=== PATIENT | male | born 1995 | race American Indian/Alaskan Native ===

== ENCOUNTER 2017-03-26 15:02 | Emergency (ER) | payer OTHER ==
[~2017-03-26] VITALS: Ht 180.3 cm; Wt 65.8 kg
[~2017-03-26 15:02] MED LIST: NORCO 5-325 TA1 EACH PO
== END 2017-03-26 19:48 | disposition left against medical advice (07) ==
LOC: ED 15:02
DX: F39 Unspecified mood [affective] disorder (principal); Z53.21 Procedure and treatment not carried out due to patient leaving prior to being seen by health care provider
CPT/HCPCS: 80053; 80176; 81001; 85025; 99283; G0480

== ENCOUNTER 2017-03-27 07:08 | Emergency (ER) | payer OTHER | END 2017-03-27 07:33 | disposition home or self-care (01) | LOC: ED 07:08 | DX: Z53.21 Procedure and treatment not carried out due to patient leaving prior to being seen by health care provider (principal) ==

== ENCOUNTER 2017-08-15 17:27 | Emergency (ER) | payer OTHER ==
[~2017-08-15] VITALS: Ht 180.3 cm; Wt 81.8 kg
[2017-08-15] MEDS ORDERED: INVEGA SUS234 MG/1.5 IM (17:42)
[2017-08-15] MEDS ORDERED: DEPAKOTE250 MG PO (17:43)
== END 2017-08-15 19:02 | disposition home or self-care (01) ==
LOC: ED 17:27
DX: F20.9 Schizophrenia, unspecified (principal); F17.200 Nicotine dependence, unspecified, uncomplicated; Z88.0 Allergy status to penicillin; Z79.899 Other long term (current) drug therapy
CPT/HCPCS: 80053; 80176; 81001; 84443; 85025; 99283; G0480

== ENCOUNTER 2018-07-17 13:14 | Emergency (ER) | payer OTHER ==
[~2018-07-17] VITALS: Ht 180.3 cm; Wt 81.8 kg
[~2018-07-17 13:14] MED LIST changes: +DEPAKOTE250 MG PO; +INVEGA SUS234 MG/1.5 IM
--- OUTSIDE RECORDS SUMMARY | 2018-07-17 13:20 | XMS ---
PreManage Notification: JORDY CHENG Security Rn Iv Therapy Events 1 event(s) in the past 18 months Most recent security events: Elopement at [facility] 03/26/2017 15:03 - Patient eloped before treatment completed. Details: AMA CRITERIA MET - Group Notification CARE PROVIDERS [facility] 05/16/2016-Current PHONE: [phone] [facility] Current PHONE: [phone] Toney has no Care Guidelines for this patient. Care History Behavioral 11/22/2017 [facility] Client has requested to discharge from mental health services against medical advice.He has agreed to stay with Medication Management only. E.D. VISIT COUNT (12 MO.) 2 [facility] [place] LeanneClaudia TOTAL 2 NOTE: Visits indicate total known visits. ED/UCC VISIT TRACKING (12 MO.) 07/17/2018 13:15 [facility] [place] TYPE: Emergency COMPLAINT: - JAW PAIN,NON INJURY 08/15/2017 17:28 [facility] Richardson [place] TYPE: Emergency COMPLAINT: - MEDICAL CLEARANCE DIAGNOSES: - Other intermediate school teacher (current) drug therapy - Nicotine dependence, unspecified, uncomplicated - Schizophrenia, unspecified - Allergy status to penicillin INPATIENT VISIT TRACKING (12 MO.) No inpatient visits to display in this time frame [email or web address]
== END 2018-07-17 15:24 | disposition home or self-care (01) ==
LOC: ED 13:14
DX: R51 Headache (principal); F15.10 Other stimulant abuse, uncomplicated; F17.200 Nicotine dependence, unspecified, uncomplicated; Z88.0 Allergy status to penicillin; Z79.899 Other long term (current) drug therapy
CPT/HCPCS: 96372; 99283-25; J1200

== ENCOUNTER 2019-12-20 11:22 | Emergency (ER) | payer OTHER ==
[~2019-12-20] VITALS: Ht 175.3 cm; Wt 84.5 kg
[~2019-12-20 11:22] MED LIST changes: +NICOTINE1 EAC1 TD; +POTASSIUM CHLO20 ME1 PO
--- OUTSIDE RECORDS SUMMARY | 2019-12-20 11:24 | XMS ---
PreManage Notification: JORDY CHENG Security Marketing Services Manager Events No recent Security Events currently on file CRITERIA MET - Group Notification - [facility] - Has Care Guidelines CARE PROVIDERS LEANDER SLOAN Physician Grease Renderer: Surgical 07/18/2018-Current PHONE: Unknown Guidelines Source: [facility] [place] Guidelines Date: 01/29/2019 Care Coordination: Mental health services are being provided by [facility].\T\nbsp; Please contact [facility] with mental health concerns.\T\nbsp; [place] [facility]: [phone]\T\nbsp; [place]: [phone]. Care History Medical/Surgical 07/18/2018 [facility] \T\middot;\T\nbsp; PATIENT IS A [employer] MEMBER. \T\middot;\T\nbsp; PLEASE REFER PATIENT TO [facility] FOR NON EMERGENT MEDICAL NEEDS. \T\middot;\ T\nbsp; [facility] CAN SEE PATIENTS SAME DAY FOR APTS IF PATIENT CALLS FIRST THING IN THE MORNING. Behavioral 11/22/2017 [place] Client has requested to discharge from mental health services against medical advice.He has agreed to stay with Medication Management only. E.D. VISIT COUNT (12 MO.) 2 ELVIRA Waters TOTAL 2 NOTE: Visits indicate total known visits. ED/UCC VISIT TRACKING (12 MO.) 12/20/2019 11:22 [facility] Richardson [place] TYPE: Emergency COMPLAINT: - ABD PAIN, VOMITING 01/28/2019 22:36 ELVIR[facility] Richardson OR TYPE: Emergency COMPLAINT: - VOMITING INPATIENT VISIT TRACKING (12 MO.) 01/29/2019 03:20 ELVIR[facility] Richardson [place] TYPE: Medical Surgical COMPLAINT: - RENAL FAILURE DIAGNOSES: - Hypokalemia - Hypokalemia - Viral intestinal infection, unspecified - Acute kidney failure, unspecified - Allergy status to penicillin - Other joint terminal attack controller (current) drug therapy - Viral intestinal infection, unspecified - Allergy status to penicillin - Acute kidney failure, unspecified - Schizophrenia, unspecified - Nicotine dependence, unspecified, uncomplicated - Vomiting, unspecified - Heatstroke and sunstroke, initial encounter - Other psychoactive substance abuse, uncomplicated - Other psychoactive substance abuse, uncomplicated - Heatstroke and sunstroke, initial encounter - Alkalosis - Other joint terminal attack controller (current) drug therapy - Alkalosis - Schizophrenia, unspecified - Nicotine dependence, unspecified, uncomplicated [id number]
[2019-12-20] MEDS ORDERED: K-TAB ER20 MEQ PO ×2 (14:18→14:19)
[2019-12-20] MEDS ORDERED: ZOFRAN4 MG PO (14:19)
== END 2019-12-20 14:45 | disposition home or self-care (01) ==
LOC: ED 11:22
DX: E87.6 Hypokalemia (principal); F12.90 Cannabis use, unspecified, uncomplicated; R11.10 Vomiting, unspecified; F17.200 Nicotine dependence, unspecified, uncomplicated; Z88.0 Allergy status to penicillin
CPT/HCPCS: 80053; 81001; 83690; 83735; 85025; 96361; 96374; 99284-25; J2405; J7030

== ENCOUNTER 2019-12-27 14:41 | Emergency (ER) | payer OTHER ==
[~2019-12-27] VITALS: Ht 175.3 cm; Wt 84.5 kg
[~2019-12-27 14:41] MED LIST changes: +K-TAB ER20 MEQ PO; +ZOFRAN4 MG PO
--- OUTSIDE RECORDS SUMMARY | 2019-12-27 14:44 | XMS ---
PreManage Notification: JORDY CHENG Security Production Estimator Events No recent Security Events currently on file CRITERIA MET - Group Notification - [facility] - Has Care Guidelines - [facility] - 2 Visits in 30 Days CARE PROVIDERS LEANDER SLOAN Physician Fisher Hoop Net: Surgical 07/18/2018-Current PHONE: Unknown Name Unknown Clinic/Center 12/22/2019-Current PHONE: [phone] Guidelines [facility] Guidelines Date: 01/29/2019 Care Coordination: Mental health services are being provided by [facility].\T\nbsp; Please contact [facility] with mental health concerns.\T\nbsp; [place] Prabhakar: [phone]\T\nbsp; Nancy: [phone]. Care History Medical/Surgical 07/18/2018 [facility] - PATIENT IS A [facility] ELIGIBLE, \T\middot;\T\nbsp; PLEASE REFER PATIENT TO [facility] FOR NON EMERGENT MEDICAL NEEDS. \T\middot;\T\nbsp; [facility] CAN SEE PATIENTS SAME DAY FOR APTS IF PATIENT CALLS FIRST THING IN THE MORNING. Behavioral 11/22/2017 Lori Walter has requested to discharge from mental health services against medical advice.He has agreed to stay with Medication Management only. E.D. VISIT COUNT (12 MO.) 3 ELVIRA Waters TOTAL 3 NOTE: Visits indicate total known visits. ED/UCC VISIT TRACKING (12 MO.) 12/27/2019 14:42 EL[facility]IR[facility] Richardson OR TYPE: Emergency COMPLAINT: - MEDICAL CLEARANCE/ DRUG USE 12/20/2019 11:22 [facility] Richardson OR TYPE: Emergency COMPLAINT: - ABD PAIN, VOMITING DIAGNOSES: - Cannabis use, unspecified, uncomplicated - Hypokalemia - Unspecified abdominal pain - Nicotine dependence, unspecified, uncomplicated - Allergy status to penicillin - Vomiting, unspecified 01/28/2019 22:36 ELVIR[facility] Richardson OR TYPE: Emergency COMPLAINT: - VOMITING INPATIENT VISIT TRACKING (12 MO.) 01/29/2019 03:20 ELVIRA Richardson OR TYPE: Medical Surgical COMPLAINT: - RENAL FAILURE DIAGNOSES: - Hypokalemia - Hypokalemia - Viral intestinal infection, unspecified - Acute kidney failure, unspecified - Allergy status to penicillin - Other termite treater (current) drug therapy - Viral intestinal infection, unspecified - Allergy status to penicillin - Acute kidney failure, unspecified - Schizophrenia, unspecified - Nicotine dependence, unspecified, uncomplicated - Vomiting, unspecified - Heatstroke and sunstroke, initial encounter - Other psychoactive substance abuse, uncomplicated - Other psychoactive substance abuse, uncomplicated - Heatstroke and sunstroke, initial encounter - Alkalosis - Other correction (current) drug therapy - Alkalosis - Schizophrenia, unspecified - Nicotine dependence, unspecified, uncomplicated [email or web address]
== END 2019-12-27 16:27 | disposition home or self-care (01) ==
LOC: ED 14:41
DX: F15.90 Other stimulant use, unspecified, uncomplicated (principal); F12.90 Cannabis use, unspecified, uncomplicated; F17.200 Nicotine dependence, unspecified, uncomplicated; Z88.0 Allergy status to penicillin
CPT/HCPCS: 81001; 99283

== ENCOUNTER 2020-06-21 13:10 | Emergency (ER) | payer OTHER ==
[~2020-06-21] VITALS: Ht 175.3 cm; Wt 84.1 kg
--- OUTSIDE RECORDS SUMMARY | 2020-06-21 13:12 | XMS ---
PreManage Notification: JORDY CHENG Security Director Of Restaurants Events No recent Security Events currently on file CRITERIA MET - Group Notification - [facility] - Has Care Guidelines CARE PROVIDERS LEANDER SLOAN Physician City Detective: Surgical 07/18/2018-Current PHONE: Unknown Name [facility] Clinic/Center 12/22/2019-Current PHONE: [phone] Guidelines Source: [facility] Guidelines Date: 01/29/2019 Care Coordination: Mental health services are being provided by [facility].\T\nbsp; Please contact [facility] with mental health concerns.\T\nbsp; [place] [facility]: \T\nbsp; [place]: [phone]. Care History Medical/Surgical 07/18/2018 [facility] - [facility], \T\middot;\T\nbsp; PLEASE REFER PATIENT TO [facility] FOR NON EMERGENT MEDICAL NEEDS. \T\middot;\T\nbsp; [facility] CAN SEE PATIENTS SAME DAY FOR APTS IF PATIENT CALLS FIRST THING IN THE MORNING. Behavioral 11/22/2017 Lori Hodges Client has requested to discharge from mental health services against medical advice.He has agreed to stay with Medication Management only. Fernando VISIT COUNT (12 MO.) 3 ELVIRA Waters TOTAL 3 NOTE: Visits indicate total known visits. ED/UCC VISIT TRACKING (12 MO.) 06/21/2020 13:11 ELVIRA Richardson OR TYPE: Emergency COMPLAINT: - POSSIBLE MENTAL CRISIS 12/27/2019 14:42 ELVIRA Richardson OR TYPE: Emergency COMPLAINT: - MEDICAL CLEARANCE/ DRUG USE DIAGNOSES: - Other stimulant use, unspecified, uncomplicated - Cannabis use, unspecified, uncomplicated - Allergy status to penicillin - Other stimulant use, unspecified, uncomplicated - Nicotine dependence, unspecified, uncomplicated 12/20/2019 11:22 [facility] Richardson OR TYPE: Emergency COMPLAINT: - ABD PAIN, VOMITING DIAGNOSES: - Cannabis use, unspecified, uncomplicated - Hypokalemia - Unspecified abdominal pain - Nicotine dependence, unspecified, uncomplicated - Allergy status to penicillin - Vomiting, unspecified INPATIENT VISIT TRACKING (12 MO.) No inpatient visits to display in this time frame [id number]
== END 2020-06-21 15:20 | disposition home or self-care (01) ==
LOC: ED 13:10
DX: F15.90 Other stimulant use, unspecified, uncomplicated (principal); F17.200 Nicotine dependence, unspecified, uncomplicated; Z88.0 Allergy status to penicillin; Z79.899 Other long term (current) drug therapy
CPT/HCPCS: 80053; 84443; 85025; 99282; G0480

== ENCOUNTER 2020-09-17 15:14 | Emergency (ER) | payer OTHER ==
[~2020-09-17] VITALS: Ht 175.3 cm; Wt 84.1 kg
--- OUTSIDE RECORDS SUMMARY | 2020-09-17 15:16 | XMS ---
PreManage Notification: JORDY CHENG Security Conference Center Manager Events No recent Security Events currently on file CRITERIA MET - Group Notification CARE PROVIDERS LEANDER SLOAN Physician Automatic Die Cutting Machine Operator: Surgical 07/18/2018-[facility] PHONE: Unknown [facility] 12/22/2019-[facility] PHONE: [phone] Care Guidelines exist for the following facilities: [facility] ( 08/30/2020 ) Care History Medical/Surgical 07/18/2018 [facility] - PATIENT IS A [facility] ELIGIBLE, \T\middot;\T\nbsp; PLEASE REFER PATIENT TO [facility] FOR NON EMERGENT MEDICAL NEEDS. \T\middot;\T\nbsp; [facility] CAN SEE PATIENTS SAME DAY FOR APTS IF PATIENT CALLS FIRST THING IN THE MORNING. Behavioral 11/22/2017 Lori Hodges Client has requested to discharge from mental health services against medical advice.He has agreed to stay with Medication Management only. EBalbir. VISIT COUNT (12 MO.) 4 ELVIRA Waters TOTAL 4 NOTE: Visits indicate total known visits. ED/UCC VISIT TRACKING (12 MO.) 09/17/2020 15:14 ELVIRA Richardson OR TYPE: Emergency COMPLAINT: - MEDICAL CLEARANCE 06/21/2020 13:11 ELVIRA Richardson [place] TYPE: Emergency COMPLAINT: - POSSIBLE MENTAL CRISIS DIAGNOSES: - Other stimulant use, unspecified, uncomplicated - Allergy status to penicillin - Nicotine dependence, unspecified, uncomplicated - Other assisted (current) drug therapy 12/27/2019 14:42 ELVIRA Richardson [place] TYPE: Emergency [...] visits to display in this time frame [email or web address]
--- NOTE | 2020-09-18 06:59 | EKG ---
[facility] [address] [facility] [place] [address] Signed Normal sinus rhythm with sinus arrhythmia Rightward axis Borderline ECG When compared with ECG of 29-JAN-2019 06:27, Non-specific change in ST segment in Lateral leads Nonspecific T wave abnormality no longer evident in Lateral leads QT has shortened Confirmed by FRANKLIN OSWALD MD ([id number]) on 09/18/2020 6:59:35 AM Electronically Signed By: FRANKLIN OSWALD MD 09/18/20 0659 PATIENT NAME: SKYLARJORDY K Electrocardiogram DATE OF : [birth year] PHYSICIAN: FRANKLIN OSWALD MD REPORT #: [id number] REPORT IS CONFIDENTIAL AND NOT TO BE RELEASED WITHOUT AUTHORIZATION
== END 2020-09-22 13:30 | disposition home or self-care (01) ==
LOC: ED 15:14
DX: F20.9 Schizophrenia, unspecified (principal); Z20.822 Contact with and (suspected) exposure to COVID-19; F17.200 Nicotine dependence, unspecified, uncomplicated; Z88.0 Allergy status to penicillin; Z88.8 Allergy status to other drugs, medicaments and biological substances; Z79.899 Other long term (current) drug therapy
CPT/HCPCS: 80053; 80176; 81001; 84443; 85025; 93005; 93010; 99285-25; C9803; Q0163; U0003

== ENCOUNTER → 2021-09-21 | Emergency (ER) | payer OTHER ==
[~2021-09-21] VITALS: Ht 175.3 cm; Wt 83.9 kg
--- OUTSIDE RECORDS SUMMARY | 2021-09-21 10:02 | XMS ---
PreManage Notification: JORDY CHENG Security Apparel Embroidery Digitizer Events No recent Security Events currently on file CRITERIA MET - Group Notification CARE PROVIDERS LEANDER SLOAN Physician Clerical Associate: Surgical 07/18/2018-[facility] PHONE: Unknown [facility] 12/22/2019-[facility] PHONE: [phone] Care Guidelines exist for the following facilities: [facility] ( 08/30/2020 ) Care History Medical/Surgical 07/18/2018 [facility] - PATIENT IS A [facility] ELIGIBLE, \T\middot;\T\nbsp; PLEASE REFER PATIENT TO [facility] FOR NON EMERGENT MEDICAL NEEDS. \T\middot;\T\nbsp; [facility] CAN SEE PATIENTS SAME DAY FOR APTS IF PATIENT CALLS FIRST THING IN THE MORNING. Behavioral 11/22/2017 Lori Hodges Client has requested to discharge from mental health services against medical advice.He has agreed to stay with Medication Management only. E.D. VISIT COUNT (12 MO.) 1 ELVIRA Waters TOTAL 1 NOTE: Visits indicate total known visits. ED/UCC VISIT TRACKING (12 MO.) 09/21/2021 09:54 ELVIRA Richardson OR TYPE: Emergency COMPLAINT: - FALL, HEAD/NECK INJURY INPATIENT VISIT TRACKING (12 MO.) No inpatient visits to display in this time frame [id number]
== END ==
LOC: ED 09:53
DX: S06.9X9A Unspecified intracranial injury with loss of consciousness of unspecified duration, initial encounter (principal); M54.2 Cervicalgia; F17.200 Nicotine dependence, unspecified, uncomplicated; Z88.0 Allergy status to penicillin; Z88.8 Allergy status to other drugs, medicaments and biological substances; W17.89XA Other fall from one level to another, initial encounter
CPT/HCPCS: 70450; 72125; 99284-25

== ENCOUNTER 2022-03-02 18:33 | Emergency (ER) | payer OTHER ==
[~2022-03-02] VITALS: Ht 175.3 cm; Wt 83.9 kg
--- OUTSIDE RECORDS SUMMARY | 2022-03-02 18:40 | XMS ---
PreManage Notification: JORDY CHENG Security Temperature Regulator Events No recent Security Events currently on file CRITERIA MET - Group Notification CARE PROVIDERS LEANDER SLOAN Physician Mainspring Strip Inspector: Surgical 07/18/2018-[facility] PHONE: Unknown [facility] 12/22/2019-[facility] PHONE: [phone] Care Guidelines exist for the following facilities: [facility] ( 08/30/2020 ) Care History Medical/Surgical 07/18/2018 [facility] - PATIENT IS A [employer] ELIGIBLE, \T\middot;\T\nbsp; PLEASE REFER PATIENT TO [facility] FOR NON EMERGENT MEDICAL NEEDS. \T\middot;\T\nbsp; [facility] CAN SEE PATIENTS SAME DAY FOR APTS IF PATIENT CALLS FIRST THING IN THE MORNING. Behavioral 11/22/2017 Lori Hodges Client has requested to discharge from mental health services against medical advice.He has agreed to stay with Medication Management only. E.D. VISIT COUNT (12 MO.) 2 ELVIRA Waters TOTAL 2 NOTE: Visits indicate total known visits. ED/UCC VISIT TRACKING (12 MO.) 03/02/2022 18:33 ELVIRA Richardson [place] TYPE: Emergency COMPLAINT: - VOMITING 09/21/2021 09:[address] [facility] [place] TYPE: Emergency COMPLAINT: - FALL, HEAD/NECK INJURY DIAGNOSES: - Unspecified injury of head, initial encounter - Cervicalgia - Allergy status to penicillin - Nicotine dependence, unspecified, uncomplicated - Allergy status to other drugs, medicaments and biological substances - Other fall from one level to another, initial encounter - Unspecified intracranial injury with loss of consciousness of unspecified duration, initial encounter INPATIENT VISIT TRACKING (12 MO.) No inpatient visits to display in this time frame [email or web address]
[2022-03-02] MEDS ORDERED: PALIPERIDONE ER6 MG PO (18:51)
[2022-03-02] MEDS ORDERED: PROTONIX40 MG PO (21:17)
[2022-03-02] MEDS ORDERED: ONDANSETRON ODT8 MG PO (21:17)
== END 2022-03-02 21:41 | disposition home or self-care (01) ==
LOC: ED 18:33
DX: K29.00 Acute gastritis without bleeding (principal); D72.829 Elevated white blood cell count, unspecified; E87.1 Hypo-osmolality and hyponatremia; E87.6 Hypokalemia; F17.200 Nicotine dependence, unspecified, uncomplicated; Z88.0 Allergy status to penicillin; Z88.8 Allergy status to other drugs, medicaments and biological substances
CPT/HCPCS: 36415; 80053; 81001; 83690; 85025; 99284; A9270; J7030

== ENCOUNTER 2025-07-07 01:44 | Emergency (ER) | payer OTHER ==
[~2025-07-07] VITALS: Ht 175.3 cm; Wt 84.1 kg
[~2025-07-07 01:44] MED LIST changes: +NICOTINE LOZENGE4 MG BUCCAL; +NICOTINE1 EAC2 TD; +ONDANSETRON ODT8 MG PO; +PALIPERIDONE ER6 MG PO; +PROTONIX40 MG PO
[2025-07-07 02:13] LABS: BASOPHILS 0.2 % (0.2-1.2); EOSINOPHILS 0.1 % (0.8-7.0); LYMPHOCYTES 5.9 % (21.8-53.1); MCH 30.3 PG (25.7-32.2); MCHC 35.5 g/dL (32.3-36.5); MCV 85.3 fL (79.0-92.2); MONOCYTES 4.7 % (5.3-12.2); NEUTROPHILS 88.8 % (34.0-67.9); RBC 4.16 M/uL (4.63-6.08)
[2025-07-07 02:36] LABS: ALT (SGPT) 22.0 U/L (14-59); AST (SGOT) 19.0 U/L (15-37); GLOMERULAR FILTRATION RATE,EST 121.0 mL/min (>60); PROTEIN, TOTAL 7.1 g/dL (6.4-8.2); UREA NITROGEN 8.0 mg/dL (7-18)
[2025-07-07] MEDS ORDERED: HYDROmorphone HCL 1 MG/ML SYR IV PRN (03:15)
[2025-07-07] MEDS ORDERED: SILVER SULFADIAZINE 400 GM HOME.PACK TOP ONE (05:00)
[2025-07-07] MEDS ORDERED: DIPHTH,PERTUSS(ACELL),TET VAC 0.5 ML SYRINGE IM ONE (05:00)
[2025-07-07] MEDS ORDERED: HYDROCODONE BIT/ACETAMINOPHEN 5/325 MG 1 TAB HOME.PACK PO ONE (05:00)
[2025-07-07] MEDS ORDERED: HYDROCODON-ACE1 EA10 PO (05:04)
[2025-07-07] MEDS ORDERED: BACITRACIN28.4 GM TOP (05:37)
[2025-07-07] MEDS ORDERED: SILVADENE20 GM TOP (05:37)
[2025-07-07 05:56] VITALS: BP 117/79
== END 2025-07-07 05:56 | disposition home or self-care (01) ==
LOC: ED 01:44
PROVIDERS: Family Medicine
DX: T25.222A Burn of second degree of left foot, initial encounter (principal); T25.221A Burn of second degree of right foot, initial encounter; T23.202A Burn of second degree of left hand, unspecified site, initial encounter; T23.201A Burn of second degree of right hand, unspecified site, initial encounter; T24.221A Burn of second degree of right knee, initial encounter; T31.10 Burns involving 10-19% of body surface with 0% to 9% third degree burns; X08.8XXA Exposure to other specified smoke, fire and flames, initial encounter
CPT/HCPCS: 16020; 36415; 71250; 80053; 82550; 83605; 85025; 90471; 90715; 96374; 99284-25; A9270; J1171